=== PATIENT | male | born 1985 | race Caucasian/White ===

== ENCOUNTER 2019-06-22 18:05 | Emergency (ER) | payer OTHER ==
[2019-06-22 18:39] VITALS: BP 124/79
[2019-06-22] MEDS ORDERED: Azithromycin TAB* 250 MG PO ONE (19:01)
--- NOTE | 2019-06-22 19:07 | UC ---
Complaint Male HPI - HPI Summary HPI Summary: Patient is a 33 male here with a STD exposure. Patient had intercourse with a female last night who he was therefore not had an STD. Patient has urinary frequency today. Patient has no penile lesions or discharge. Patient has no testicular pain. Medications reviewed - History of Current Complaint Chief Complaint: UCGU Stated Complaint: PERSONAL Time Seen by Provider: 06/22/19 18:51 Hx Obtained From: Patient Onset/Duration: Sudden Onset Pain Intensity: 0 - Allergies/Home Medications Allergies/Adverse Reactions: Allergies Allergy/AdvReac Type Severity Reaction Status Date / Time Penicillins Allergy Fever, Verified 06/22/19 18:31 skin and nail sloughing Home Medications: Home Medications Lisinopril TAB* [Prinivil TAB*] 10 mg PO DAILY 06/22/19 [History Confirmed 06/22] Rx Antidiarrheal 1 dose PO TID 06/22/19 [History] PMH/Surg Hx/FS Hx/Imm Hx Previously Healthy: Yes - Surgical History Surgical History: Yes Surgery Procedure, Year, and Place: b/l inguinal hernia surgery x 2, Tonsillectomy. - Family History Known Family History: Positive: Non-Contributory - Social History Alcohol Use: Weekly Alcohol Amount: 30-40 week Substance Use Type: Excessive Caffeine Smoking Status (MU): Never Smoked Tobacco Type: Smokeless Tobacco Have You Smoked in the Last Year: No Review of Systems All Other Systems Reviewed And Are Negative: Yes Constitutional: Negative: Fever, Chills, Fatigue Skin: Negative: Rash Genitourinary: Positive: Dysuria. Negative: Hematuria, Vaginal/Penile Discharge , Vaginal/Penile Pain, Vaginal/Penile Tenderness Physical Exam - Summary Physical Exam Summary: Vital Signs Reviewed: Yes A+Ox3, no distress Eyes: Conjunctiva Clear ENT: Hearing grossly normal neck: supple Respiratory: Positive: No respiratory distress, No accessory muscle use Cardiovascular: skin color reflect adequate perfusion Musculoskeletal Exam: BISWAS x 4 without difficulty : No inguinal lymphadenopathy, no penile lesions, no pain no discharge, no testicular tenderness Neurological: Positive: Alert, ambulatory without difficulty Triage Information Reviewed: Yes Vital Signs: Initial Vital Signs Temp 97.6 F 06/22/19 18:34 Pulse 86 06/22/19 18:34 Resp 18 06/22/19 18:34 BP 124/79 06/22/19 18:34 Pulse Ox 99 06/22/19 18:34 Complaint Male Course/Dx - Course Course Of Treatment: Patient is here with an STD exposure. Patient is having symptoms with dysuria. Patient has a severe penicillin allergy so he is not a candidate for typical treatment. Patient had a gonorrhea chlamydia urine sent. Patient HIV test sent as well. The patient was treated with 2 g of azithromycin. If patient's gonorrhea comes back positive, he will have to be tested in 2 weeks for test of clear as there is a high amount of resistance to azithromycin with gonorrhea. Patient was made aware of this information was comfortable with the plan. - Differential Dx/Diagnosis Differential Diagnosis/HQI/PQRI: Epididymitis, Priaprism, Prostatitis, Other - Urethritis, syphilis, HIV Provider Diagnosis: Urethritis Discharge - Sign-Out/Discharge Documenting (check all that apply): Patient Departure All imaging exams completed and their final reports reviewed: No Studies - Discharge Plan Condition: Stable Disposition: HOME Patient Education Materials: Gonorrhea (ED), Nonspecific Urethritis in Men (ED) Referrals: Rehan Peters MD [Primary Care Provider] - Additional Instructions: You will receive a call in the next 2-3 days with the results If your gonorrhea comes back positive, he will have to to a test of cure in 2 weeks today due to your severe penicillin allergy - Billing Disposition and Condition Condition: STABLE Disposition: Home
[2019-06-23 13:36] LABS: HIV 4th Generation Negative (Negative)
--- NOTE | 2019-06-24 09:08 | UC ---
- Progress Note Progress Note: Labs reviewed today: HIV fourth-generation and P 24 antigen ( in chart)negative No change in plan at this time Course/Dx - Diagnoses Provider Diagnoses: Urethritis Discharge - Sign-Out/Discharge Documenting (check all that apply): Post-Discharge Follow Up All imaging exams completed and their final reports reviewed: No Studies - Discharge Plan Condition: Stable Disposition: HOME Patient Education Materials: Gonorrhea (ED), Nonspecific Urethritis in Men (ED) Referrals: Rehan Peters MD [Primary Care Provider] - Additional Instructions: You will receive a call in the next 2-3 days with the results If your gonorrhea comes back positive, he will have to to a test of cure in 2 weeks today due to your severe penicillin allergy - Billing Disposition and Condition Condition: STABLE Disposition: Home
[2019-06-26 13:27] LABS: Neisseria gonorrhoeae (GC) RNA Negative (Negative)
== END 2019-06-22 19:35 | disposition home or self-care (01) ==
LOC: UCCORT 18:05
DX: N34.2 Other urethritis (principal); Z88.0 Allergy status to penicillin
CPT/HCPCS: 36415; 87389; 87491; 87591; 99201; A9270-GY; G0463